=== PATIENT | male | born 1955 | race Caucasian/White ===

== ENCOUNTER 2024-07-10 18:01 | Emergency (ER) | payer MEDICARE, SELFPAY ==
--- NOTE | ~2024-07-10 | XR_ITS ---
XR shoulder RT min 2V Ordering provider: Tracie Murcia APRN History: . post pain; decreased ROM . Comparison: None. FINDINGS: BONES: No acute fracture or dislocation. JOINT SPACES: The acromioclavicular joint is normal. The glenohumeral joint is normal. SOFT TISSUES: Normal. IMPRESSION: No acute osseous abnormality right shoulder. Reviewed, dictated and finalized at location A.
[2024-07-10 18:08] VITALS: PULSE 66; RESP 18; TEMP 36.6; O2SAT 98
--- NOTE | 2024-07-10 18:38 | ED.GENADULT ---
HPI - General Adult General Chief complaint: Extremity Injury, Upper Stated complaint: Pain on right side/lump on lower belly Time Seen by Provider: 07/10/24 18:38 Source: patient, RN notes reviewed and old records reviewed Mode of arrival: ambulatory Limitations: no limitations History of Present Illness HPI narrative: 69-year-old male to [facility] for complaint of right shoulder pain for 1 week that has become increasingly worse over the past 4 days. Patient endorses the pain is worse with active range of motion. Patient has not attempted to treat at home. Patient also complaining of left lower abdominal bulging that has been present for approximately 2 months. Patient denies pain, injury, urinary changes, bowel changes, abdominal surgical history, pertinent medical history. Patient states that he does not have a primary care provider and cannot recall the last time he saw one. Patient resting comfortably in exam room in no acute distress. Respirations even and nonlabored. Related Data Allergies Allergy/AdvReac Type Severity Reaction Status Date / Time ANTIDEPRESSANT MEDICATION Allergy Unknown Hallucinati Uncoded 07/10/24 18:26 ng Review of Systems Review of Systems: All systems reviewed & are unremarkable except as noted in HPI and below Constitutional: Constitutional: Reports no additional constitutional complaints Eyes: Eyes: Reports no additional eye complaints ENT: Reports system reviewed and no additional complaints, except as documented Cardiovascular: Cardiovascular: Reports no additional cardiovascular complaints, Denies chest pain and Denies dyspnea Respiratory: Respiratory: Reports no additional respiratory complaints, Denies cough and Denies dyspnea Gastrointestinal: Gastrointestinal: Reports as per HPI, Denies abdominal pain, Reports melena and Denies change in bowel habits Comments: patient endorses mass to left lower quadrant, denies pain Musculoskeletal: Musculoskeletal: Reports as per HPI and Reports arthralgias ( right shoulder pain with active range of motion per patient) Neurologic: Reports system reviewed and no additional complaints, except as documented Psychiatric: Psychiatric: Reports no additional psychiatric complaints PMFSH Comments At the time of my signature, I reviewed and agree with the nursing past medical, surgical, social, and family history. There is no relevant family history pertinent to the patient complaint. Exam Const: General: cooperative, comfortable, no acute distress, alert and well nourished Nutritional Appearance: well nourished Orientation/consciousness: patient oriented x3 Limitations: no limitations HENMT: Head: normal to inspection Ears: external ears normal Face/Nose/Sinus: Normal external nose present, Normal nares present, normal facial exam, No erythema and No edema Face and sinus: normal facial exam, no erythema and no edema Mouth: Yes Normal oral and palatal mucosa present Eyes: General: appearance normal, both eyes and all related structures Neck: Neck: normal visual inspection, full ROM and no meningeal signs Lymphatic: no lymphadenopathy noted and no lymphedema noted Chest: Chest palpation & inspection: normal inspection of the chest Resp: Effort & Inspection: normal respiratory effort and able to speak in complete sentences Auscultation: clear to auscultation bilaterally Cardio: Jugular venous distension: no JVD Rate: regular rate Rhythm: regular rhythm GI: Inspection: no abdominal wall ecchymosis, non-distended, no visible herniation, no visible pulsation and No visible peristalsis GI Palp: No abdominal tenderness, No Abdominal aortic bruit present, Yes Soft to palpation, Yes Palpable mass present (LLQ), No Pulsatile mass present, No Ascites present and No Rebound tenderness present Back/Spine/Pelvis: Cervical Spine: cervical ROM normal Skin: General skin exam: normal color, no rashes or lesions noted and turgor normal Neuro:
== END 2024-07-10 19:35 | disposition home or self-care (01) ==
PROVIDERS: Emergency Provider Nurse Practitioner Family
DX: M25.511 Pain in right shoulder (principal); R19.00 Intra-abdominal and pelvic swelling, mass and lump, unspecified site
CPT/HCPCS: 73030; 99213; G0463

== ENCOUNTER 2025-01-17 19:09 | Emergency (ER) | payer MEDICARE, SELFPAY ==
--- OUTSIDE RECORDS SUMMARY | 2025-01-17 19:12 | XMS_ITS | Clinical Summary ---
Author Organization [facility] Address [address] [place] [address] Phone Care Team Providers Care Casework Manager Name Role Phone Provider, None Primary Care Provider Unavailabl e Allergies Active Allergy Reactions Criticality Noted Date Comments Ciprofloxacin Hallucinations 07/11/2024 Medications DIPHENHYDRAMINE HCL PO Take 25 mg by mouth daily. Active methylPREDNISol one (MEDROL DOSPACK) 4 MG Tablet Therapy Pack See product package insert for dosing schedule 21 Tablet 07/11/2024 Active traMADol (ULTRAM) 50 MG TabletIndicatio ns:Right shoulder pain Take 1-2 Tablets by mouth every 6 hours as needed for Moderate or more severe pain. 20 Tablet 07/11/2024 Active Social History Tobacco Use Types Packs/Day Years Used Date Smoking Tobacco: Every Day Cigarettes Tobacco Cessation:Ready to Q uit: Not Asked; Counseling Given: Not Answered Alcohol Use Standard Drinks/Week Comments Yes 3 (1 standard drink = 0.6 oz pur e alcohol) Sex and Gender Information Value Date Recorded Sex Assigned at Not on file Legal Sex Male 1:21 PM CDT Gender Identity Not on file Sexual Orientation Not on file Last Filed Vital Signs Vital Sign Reading Time Taken Comments Blood Pressure 161/94 07/11/2024 11:00 PM CDT Pulse 68 07/11/2024 11:00 PM CDT Temperature 36.5 C (97.7 F) 07/11/2024 6:54 PM CDT Respiratory Rate 19 07/11/2024 11:00 PM CDT Oxygen Saturation 97% 07/11/2024 11:00 PM CDT Inhaled Oxygen Concentration - - Weight 70.3 kg (155 lb) 07/11/2024 6:54 PM CDT Height 182.9 cm (6') 07/11/2024 6:54 PM CDT Body Mass Index 21.02 07/11/2024 6:54 PM CDT Plan of Treatment Health Maintenance Due Date Last Done Comments Hepatitis C Virus (HCV) Screening 1955 TdaP Immunization 1957 Pneumococcal Immunization (5 0+ years) (1 of 2 - PCV) 1976 Colonoscopy 2002 Colorectal Cancer Screening 2002 Cologuard 2007 Immunochemical Fecal Occult Blood 2007 Zoster Immunization (1 of 2) 2007 PSA Discussion 2012 AAA Screening Ultrasound 2022 Influenza Immunization (#1) 2024 SARS-COV-2 Immunization ( season) 2024 04/15/2021, 03/18/2021 Respiratory Syncytial Virus (RSV) Immunization (Adult) (1 - 1-dose 75+ series) 2032 Hepatitis B Immunization Aged Out No longer eligible based on patient's age to complete this topic Meningococcal Immunization (ACWY) Aged Out No longer eligible b ased on patient's age to complete this topic Rotavirus Immunization Aged Out No lo nger eligible based on patient's age to complete this topic Insurance MEDICARE Care Teams Casework Manager Relationship Specialty Start Date End Date Provider, None [place] PCP - General 07/11/24
--- OUTSIDE RECORDS SUMMARY | 2025-01-17 19:12 | XMS_ITS | Clinical Summary ---
Author Organization [facility] Address [address] [place] [address] Care Team Providers Care Rn Ante Partum Name Role Phone Christian Leonides Steward DO Primary Care Provider [phone] Alberto Locke DO Unavailable Source Comments [facility],non-owned Affiliates and Associated Physician Practices is amultiple site organization consisting of ambulatory clinics and hospital sitesin [place], [place], [place] and [place]. This disclosure is being madepursuant to the Care Everywhere program and may not contain all information available regarding this patient. Last updated 18.[facility] [employer] Allergies Active Allergy Reactions Criticality Noted Date Comments Ciprofloxacin Unknown 02/12/2019 Medications * Be aware that medications may not be up to date on this document. Alwaysverify current medications with the patient. Medication Sig Dispensed Refills Start Date End Date Status albuterol HFA (PROVENTIL;VENTOLIN; PROAIR) 108 (90 Base) MCG/ACT inhaler Inhale 2 puffs by mouth every 6 hours as needed for Shortness of Breath, Wheezing or Cough 1 Inhaler 02/12/2019 Active Social History Tobacco Use Types Packs/Day Years Used Date Smoking Tobacco: Every Day Cigarettes Alcohol Use Standard Drinks/Week Comments Yes 0 (1 standard drink = 0.6 oz pur e alcohol) daily-5 to 6 beers daily Sex and Gender Information Value Date Recorded Sex Assigned at Not on file Gender Identity Not on file Sexual Orientation Not on file Last Filed Vital Signs Vital Sign Reading Time Taken Comments Blood Pressure 130/82 02/12/2019 12:41 PM CDT Pulse 81 02/12/2019 12:41 PM CDT Temperature 36.6 C (97.8 F) 02/12/2019 12:41 PM CDT Respiratory Rate 18 05/13/2012 6:51 PM CDT Oxygen Saturation 95% 02/12/2019 12:41 PM CDT Inhaled Oxygen Concentration - - Weight 65.8 kg (145 lb) 02/12/2019 12:41 PM CDT Height 182.9 cm (6') 02/12/2019 12:41 PM CDT Body Mass Index 19.67 02/12/2019 12:41 PM CDT Plan of Treatment Health Maintenance Due Date Last Done Comments COLOGUARD (AGES 45-75) - COL ON CA SCREENING 1957 COLON MONITORING 1957 COLONOSCOPY - COLON CA SCREENING 1957 CT COLONOGRAPHY - COLON CA SCREENING 1957 Colorectal Cancer Screening 1957 FIT - COLON CA SCREENING 1957 FLEX SIG - COLON CA SCREENING 1957 LIPID TESTING 1957 HEPATITIS C SCREENING 05/14/1975 DTAP/TDAP/TD VACCINES (1 - Tdap) 1976 PNEUMOCOCCAL VACCINE 50+ (1 of 2 - PCV) 1976 ZOSTER VACCINE (1 of 2) 2007 AAA SCREENING 2022 COVID-19 VACCINE ( - 2023-2 5 season) 2024 INFLUENZA VACCINE (#1) 2024 DEPRESSION SCREENING 10/23/2024 Respiratory Syncytial Virus (RSV) Vaccine Pt: or over 60 yrs (1 - 1-dose 75+ series) 2032 HEPATITIS B VACCINE Aged Out No longe r eligible based on patient's age to complete this topic HIB VACCINE Aged Out No longer eligi ble based on patient's age to complete this topic HPV VACCINE Aged Out No longer eligi ble based on patient's age to complete this topic MENINGOCOCCAL (Group B) VACC INE SHARED DECISION-MAKING Aged Out No longer eligibl e based on patient's age to complete this topic MENINGOCOCCAL GROUPS A/C/Y/W VACCINE Aged Out No longer eligible b ased on patient's age to complete this topic Care Teams Rn Ante Partum Relationship Specialty Start Date End Date Leonides Gonzales DO [address] [place] [id number] PCP - General 05/13/12 [place] [address] [place] [address] PCP - Attributed-[facility] 11/23/24
[2025-01-17 19:14] VITALS: BP 220/109; PULSE 71; RESP 16; TEMP 36.5; O2SAT 96
[2025-01-17 19:21] VITALS: BP 195/93
--- NOTE | 2025-01-17 19:24 | ED_ITS ---
HPI - General Adult General Chief complaint: Upper Respiratory Infection Stated complaint: thinks plurasy/sinus infection Time Seen by Provider: 01/17/25 19:25 Source: patient Mode of arrival: ambulatory Limitations: no limitations History of Present Illness HPI narrative: 69-year-old male presented for complaint of right lower rib pain for 2 days, nasal congestion and sinus pressure for about 2 weeks. Says the rib pain feels like previous pleurisy; increases with deep breath and coughing Taking an unknown antihistamine for symptoms. Denies chest pain, heart racing, shortness of breath, wheezing nausea vomiting diarrhea, fevers or lethargy. Patient smokes over 1 PPD, alcohol daily. No PCP Related Data Allergies Allergy/AdvReac Type Severity Reaction Status Date / Time ANTIDEPRESSANT MEDICATION Allergy Unknown Hallucinati Uncoded 01/17/25 19:26 ng Review of Systems Review of Systems: ROS per HPI All systems reviewed & are unremarkable except as noted in HPI and below PMFSH Comments At time of signature, I have reviewed and agree with nursing past medical, surgical, social and family history unless otherwise noted. Please see nursing chart for further information. There is no relevant family history pertinent to the presenting complaint Exam Narrative: GENERAL: Well-appearing, in no acute distress. EYES: EOMI. No redness or drainage. Conjunctivae normal. ENT: Mucous membranes pink and moist. No rhinorrhea. NECK: Normal AROM. Supple. CHEST: No respiratory distress. Lungs clear diminished; tender right anterior/lateral ribs with palpation, no bruising or rash. HEART: Regular rate and rhythm. No murmur appreciated. EXTREMITIES: Normal range of motion. No edema. SKIN: Warm, dry, no rash. Capillary refill normal. Normal skin turgor. NEURO: Alert and oriented x3. Gait steady. PSYCH: Normal affect. Course Course Emergency Course: Patient is aware of diagnosis, understands and agrees to treatment plan. Anticipatory guidance given. Patient agrees to follow-up as directed and is aware of reasons to seek care at the emergency department. Portions of this record may have been created with voice recognition software Level of Care: Express Care Visit Vital Signs Vital signs: Vital Signs Temperature 97.7 F 01/17/25 19:14 Pulse Rate 71 01/17/25 19:14 Respiratory Rate 16 01/17/25 19:14 Blood Pressure 220/109 H 01/17/25 19:14 Pulse Oximetry 96 01/17/25 19:14 Oxygen Delivery Room Air 01/17/25 19:14 Temperature 97.7 F 01/17/25 19:14 Pulse Rate 71 01/17/25 19:14 Respiratory Rate 16 01/17/25 19:14 Blood Pressure 195/93 H 01/17/25 19:21 Pulse Oximetry 96 01/17/25 19:14 Oxygen Delivery Room Air 01/17/25 19:14 Medical Decision Making MDM Narrative Medical decision making narrative: Discussed physical exam findings. Advised supportive measures and signs/symptoms to go to the ER. Pt is appropriate for outpt treatment and f/u. Differential Diagnosis Differential Diagnosis: Angioedema, perforation, asthma, pneumonia, PE, tension pneumothorax, cardiac tamponade ME, pericarditis, pleural effusion, CHF, bronchitis, cardiac arrhythmia Vital Signs Vital Signs: Vital Signs Temperature 97.7 F 01/17/25 19:14 Pulse Rate 71 01/17/25 19:14 Respiratory Rate 16 01/17/25 19:14 Blood Pressure 220/109 H 01/17/25 19:14 Pulse Oximetry 96 01/17/25 19:14 Oxygen Delivery Room Air 01/17/25 19:14 Temperature 97.7 F 01/17/25 19:14 Pulse Rate 71 01/17/25 19:14 Respiratory Rate 16 01/17/25 19:14 Blood Pressure 195/93 H 01/17/25 19:21 Pulse Oximetry 96 01/17/25 19:14 Oxygen Delivery Room Air 01/17/25 19:14 Discharge Plan Discharge Clinical Impression: Bronchitis, Elevated blood pressure reading Patient Disposition: Home, Self-Care Condition: Stable Instructions: Antibiotic Form, Acute Bronchitis (ED), Hypertension (ED) Additional Instructions: Your blood pressure reading was elevated (above 120/80) You were advised to transfer to the ER and you decline at this time. You were made aware of the risk of refusal including worsening of your condition and . If you develop worsening Blood Pressure symptoms, (headache, vision changes, dizziness, vomiting, chest pain, etc) go to the ER. Call 911. Take medication as directed Recommendations: Flonase spray and Zyrtec (or Claritin/Andria) for nasal congestion over the counter Cough syrup may cause drowsiness; avoid driving or take it at night time. Coricidin HBP if you have high blood pressure. Avoid decongestants. Tylenol 1000mg every 8 hours as needed for pain Symptomatic treatment includes: rest, Push fluids, smoking cessation, and increase humidity of the air at home. establish with a primary care provider in follow-up within 1 week Go to the ER for worsening symptoms or concerns Patient Language: Polish Prescriptions: New benzonatate 200 mg capsule 200 mg PO TID PRN (Reason: cough) Qty: 20 0RF methylprednisolone [Medrol (James)] 4 mg tablets,dose pack See Rx Instructions .ROUTE .COMPLEX Qty: 21 0RF Rx Instructions: orally per package directions amoxicillin-pot clavulanate 875-125 mg tablet 1 tablet PO Q12H 7 Days Qty: 14 0RF No Action baclofen 10 mg tablet 10 mg PO TID Qty: 12 0RF Rx Instructions: 2-3 times per day PRN for pain Follow-up/Referrals: PHYSICIAN,PUBLIC INFORMATION DIRECTOR [Primary Care Provider] -
== END 2025-01-17 19:58 | disposition left against medical advice (07) ==
PROVIDERS: Emergency Provider Nurse Practitioner Family
DX: J40 Bronchitis, not specified as acute or chronic (principal); R03.0 Elevated blood-pressure reading, without diagnosis of hypertension
CPT/HCPCS: 99213; G0463

== ENCOUNTER 2025-01-31 17:56 | Emergency (ER) | payer MEDICARE, SELFPAY ==
--- OUTSIDE RECORDS SUMMARY | 2025-01-31 17:59 | XMS_ITS | Clinical Summary ---
Author Organization [facility] Address [address] [place] [address] Care Team Providers Care Critical Power Install Technician Name Role Phone Christian Leonides Steward DO Primary Care Provider [phone] Alberto Locke DO Unavailable Source Comments [facility],non-owned Affiliates and Associated Physician Practices is amultiple site organization consisting of ambulatory clinics and hospital sitesin [place], [place] and [place]. This disclosure is being madepursuant to the Care Everywhere program and may not contain all information available regarding this patient. Last updated 18.[facility] [email or web address] Allergies Active Allergy Reactions Criticality Noted Date [...] VACCINE ( - 2023-2 5 season) 2024 DEPRESSION SCREENING 10/23/2024 INFLUENZA VACCINE (Season Ended) 2025 Respiratory Syncytial Virus (RSV) Vaccine Pt: or [...] age to complete this topic Care Teams Critical Power Install Technician Relationship Specialty Start Date End Date Leonides Gonzales DO [address] [place] [id number] PCP - General 05/13/12 [place] [address] [place] [id number] PCP - Attributed-[facility] 11/23/24
--- OUTSIDE RECORDS SUMMARY | 2025-01-31 17:59 | XMS_ITS | Clinical Summary ---
Author Organization [facility] Address [address] [place] [address] Phone Care Team Providers Care Clockmaker Name Role Phone Provider, None Primary Care [...] more severe pain. 20 Tablet 07/11/2024 Active amLODIPine (NORVASC) 5 MG TabletIndicatio ns:Hypertension Take 1 Tablet by mouth daily. Indications: High Blood Pressure 30 Tablet 01/23/2025 Active Encounters Date Type Department Care Team Description [facility] [place] [id number] Rich Barraza RN ED Follow-up (pt called to er requesting information) 01/23/2025 7:21 PM CDT - 01/23/2025 11:27 PM CDT [facility] [place] [id number] Anton Garcia MD Hypertension Discharge Disposition: Discharged to home or Selfcare 01/23/2025 Travel from Last 3 Months Social History Tobacco Use Types Packs/Day Years [...] Sign Reading Time Taken Comments Blood Pressure 191/75 01/23/2025 11:15 PM CDT Pulse 57 01/23/2025 11:15 PM CDT Temperature 36.6 C (97.9 F) 01/23/2025 7:19 PM CDT Respiratory Rate 17 01/23/2025 11:15 PM CDT Oxygen Saturation 97% 01/23/2025 11:15 PM CDT Inhaled Oxygen Concentration - - Weight 70.3 kg (155 lb) 01/23/2025 7:19 PM CDT Height 182.9 cm (6') 01/23/2025 7:19 PM CDT Body Mass Index 21.02 01/23/2025 7:19 PM CDT Plan of Treatment Health Maintenance Due Date Last Done Comments Hepatitis C Virus (HCV) Screening 1955 TdaP Immunization 1957 Pneumococcal Immunization (5 0+ years) (1 of 2 - PCV) 1976 Colonoscopy 2002 Colorectal Cancer Screening 2002 Cologuard 2007 Immunochemical Fecal Occult Blood 2007 Zoster Immunization (1 of 2) 2007 PSA Discussion 2012 AAA Screening Ultrasound 2022 SARS-COV-2 Immunization (3 - season) 2024 04/15/2021, 03/18/2021 Influenza Immunization (Seas on Ended) 2025 Respiratory Syncytial Virus (RSV) Immunization (Adult) (1 - 1-dose 75+ series) 2032 Hepatitis B Immunization Aged Out No longer eligible based on patient's age to complete this topic Meningococcal Immunization (ACWY) Aged Out No longer eligible b ased on patient's age to complete this topic Rotavirus Immunization Aged Out No lo nger eligible based on patient's age to complete this topic Procedures Procedure Name Priority Date/Time Associated Diagnosis Comments TROPONIN I, HIGH SENSITIVITY (HSTRP) STAT 01/23/2025 9:25 PM CDT AEROSOL NEBULIZER-INITIAL STAT 01/23/2025 8:32 PM CDT XR CHEST 2 VIEWS STAT 01/23/2025 8:26 PM CDT EKG 12 LEAD STAT 01/23/2025 8:09 PM CDT CBC WITH AUTO DIFFERENTIAL STAT 01/23/2025 8:07 PM CDT TROPONIN I, HIGH SENSITIVITY (HSTRP) STAT 01/23/2025 8:07 PM CDT MAGNESIUM (MG) STAT 01/23/2025 8:07 PM CDT D-DIMER STAT 01/23/2025 8:07 PM CDT COMPLETE BLOOD COUNT (CBC) WITH DIFF STAT 01/23/2025 8:07 PM CDT CMP (COMPREHENSIVE METABOLIC PANEL) STAT 01/23/2025 8:07 PM CDT B-TYPE NATRIURETIC PEPTIDE (BNP) STAT 01/23/2025 8:07 PM CDT EKG SCAN 01/23/2025 12:00 AM CDT from Last 3 Months Results * TROPONIN I, HIGH SENSITIVITY (HSTRP) (01/23/2025 9:25 PM CDT) Only the most recent of2 resultswithin the time period is included. TROPONIN I, HIGH SENSITIVITY- [place] 4 <=35 ng/L 01/23/2025 9:57 PM CDT [facility] Comment: High-sensitivity troponin I results are reported in ng/L making the result appear to be 1,000 times higher than the contemporary troponin I value which is reported in ng/ml. Results from [place]. Blood Venipuncture / Unknown 01/23/2025 9:25 PM CDT 01/23/2025 9:35 PM CDT Anton Garcia MD CHEMISTRY ORDERABLES Allyson l Result [facility] [place] [address] * XR CHEST 2 VIEWS (01/23/2025 8:26 PM CDT) Anatomical Region Laterality Modality Chest N/A Digital Radiogra phy 01/23/2025 8:50 PM CDT Impressions 01/23/2025 8:52 PM CDT IMPRESSION: No acute cardiopulmonary abnormality. Narrative 01/23/2025 8:52 PM CDT EXAM DESCRIPTION: XR CHEST 2 VIEWS REASON FOR STUDY: Chest pain and elevated blood pressure today. Chest discomfort started 3 days ago. TECHNIQUE: 2 radiographic view(s) of the chest. COMPARISON: 07/11/2024 FINDINGS: LUNGS: No focal opacity, pleural effusion, or pneumothorax. HEART/MEDIASTINUM: Cardiac silhouette normal in size. Mediastinal and hilar contours appear normal. LINES/TUBES: None. BONES: No acute osseous abnormality. THIS IS AN ELECTRONICALLY VERIFIED FINAL REPORT 01/23/2025 8:50 PM - Electronically signed by Abimael Joyce M.D. KT: LISA Report ID: [id number] Reading Location: [id number] Procedure Note Abimael Joyce MD - 01/23/2025 EXAM DESCRIPTION: XR CHEST 2 VIEWS REASON FOR STUDY: Chest pain and elevated blood pressure today. Chest discomfort started 3 days ago. TECHNIQUE: 2 radiographic view(s) of the chest. COMPARISON: 07/11/2024 FINDINGS: LUNGS: No focal opacity, pleural effusion, or pneumothorax. HEART/MEDIASTINUM: Cardiac silhouette normal in size. Mediastinal and hilar contours appear normal. LINES/TUBES: None. BONES: No acute osseous abnormality. THIS IS AN ELECTRONICALLY VERIFIED FINAL REPORT 01/23/2025 8:50 PM - Electronically signed by Abimael Joyce M.D. KT: KT Report ID: [id number] Reading Location: [place] [address] IMPRESSION: No acute cardiopulmonary abnormality. Anton Garcia MD IMG DIAGNOSTIC ORDERABLES Final Result * EKG 12 LEAD (01/23/2025 8:09 PM CDT) Ventricular Rate 56 BPM EXTERNAL EKG Atrial Rate 56 BPM EXTERNAL EKG P-R Interval 132 ms EXTERNAL EKG QRS Duration 90 ms EXTERNAL EKG Q-T Duration 424 ms EXTERNAL EKG QTC CALCULATION 409 ms EXTERNAL EKG P [place] 73 degrees EXTERNAL EKG R [place] 31 degrees EXTERNAL EKG T [place] 53 degrees EXTERNAL EKG 01/23/2025 8:09 PM CDT Impressions EXTERNAL EKG - 01/24/2025 3:13 PM CDT Sinus bradycardia Otherwise normal ECG When compared with ECG of 11-JUL-2024 19:21, premature atrial complexes are no longer present Confirmed by Clyde Yousif ([id number]) on 01/24/2025 3:13:28 PM Narrative Procedure Note Clyde Yousif MD - 01/24/2025 IMPRESSION: Sinus bradycardia Otherwise normal ECG When compared with ECG of 11-JUL-2024 19:21, premature atrial complexes are no longer present Confirmed by Clyde Yousif ([id number]) on 01/24/2025 3:13:28 PM Anton Garcia MD IMG ECG ORDERABLES Final Result EXTERNAL EKG * (ABNORMAL) CBC with Auto Differential (01/23/2025 8:07 PM CDT) WBC 5.60 4.00 - 12.00 10(3)/mcL 01/23/2025 8:40 PM CDT [facility] RBC 4.37(L) 4.40 - 5.80 10(6)/mcL 01/23/2025 8:40 PM CDT [facility] HEMOGLOBIN (HGB) 15.6 13.0 - 16.5 g/dL 01/23/2025 8:40 PM CDT [facility] HEMATOCRIT (HCT) 44.2 38.0 - 50.0 % 01/23/2025 8:40 PM CDT [facility] MCV 101.1(H) 82.0 - 96.0 fL 01/23/2025 8:40 PM CDT [facility] MCH 35.7(H) 26.0 - 32.0 pg 01/23/2025 8:40 PM CDT [facility] MCHC 35.3 31.0 - 36.0 g/dL 01/23/2025 8:40 PM CDT [facility] PLATELET COUNT 189 140 - 440 10(3)/mcL 01/23/2025 8:40 PM CDT [facility] RDW 12.2 11.8 - 15.5 % 01/23/2025 8:40 PM CDT [facility] MPV 10.4 8.0 - 12.6 fL 01/23/2025 8:40 PM CDT [facility] NEUTROPHILS 67.2 40.0 - 68.0 % 01/23/2025 8:40 PM CDT [facility] LYMPHOCYTES 20.9 19.0 - 49.0 % 01/23/2025 8:40 PM CDT [facility] MONOCYTES 10.0 3.0 - 13.0 % 01/23/2025 8:40 PM CDT [facility] EOSINOPHILS 1.4 0.0 - 8.0 % 01/23/2025 8:40 PM CDT [facility] BASOPHILS 0.5 0.0 - 1.0 % 01/23/2025 8:40 PM CDT [facility] ABSOLUTE NEUTROPHILS 3.76 1.40 - 5.30 10(3)/mcL 01/23/2025 8:40 PM CDT [facility] ABSOLUTE LYMPHOCYTES 1.17 0.90 - 3.30 10(3)/mcL 01/23/2025 8:40 PM CDT [facility] ABSOLUTE MONOCYTES 0.56 0.10 - 0.90 10(3)/mcL 01/23/2025 8:40 PM CDT [facility] ABSOLUTE EOSINOPHIL 0.08 0.00 - 0.50 10(3)/[facility] 01/23/2025 8:40 PM CDT [facility] ABSOLUTE BASOPHILS 0.03 0.00 - 0.10 10(3)/[facility] 01/23/2025 8:40 PM CDT [facility] NRBC PER 100 WBC 0 01/24/20 8:40 PM CDT [facility] Blood Venipuncture / Unknown 01/23/2025 8:07 PM CDT 01/23/2025 8:16 PM CDT us Anton Garcia MD HEMATOLOGY ORDERABLES Fin al Result Performing Organization Address City/[facility]/ZIP Co de Phone Number [facility] [place] [address] * MAGNESIUM (MG) (01/23/2025 8:07 PM CDT) [facility] MAGNESIUM 2.1 1.6 - 2.6 mg/dL 01/23/2025 8:35 PM CDT [facility] Blood Venipuncture / Unknown 01/23/2025 8:07 PM CDT 01/23/2025 8:12 PM CDT Anton Garcia MD CHEMISTRY ORDERABLES Allyson l Result [facility] [place] [address] * D-Dimer (01/23/2025 8:07 PM CDT) Pathologist [facility] D DIMER <=0.27 <0.50 mcg/mL FEU 01/23/2025 8:29 PM CDT [facility] Blood Venipuncture / Unknown 01/23/2025 8:07 PM CDT 01/23/2025 8:12 PM CDT Narrative [facility] - 01/23/2025 8:29 PM CDT The FDA has approved this method to exclude the diagnosis of DVT and/or PE at the cutoff value of <0.50 mcg/mL FEU. us Anton Garcia MD HEMATOLOGY ORDERABLES Fin al Result [facility] [place] [address] * (ABNORMAL) CMP (Comprehensive Metabolic Panel) (01/23/2025 8:07 PM CDT) [facility] SODIUM 141 136 - 145 mmol/L 01/23/2025 8:35 PM CDT [facility] POTASSIUM 4.1 3.5 - 5.1 mmol/L 01/23/2025 8:35 PM CDT [facility] CHLORIDE 108(H) 98 - 107 mmol/L 01/23/2025 8:35 PM CDT [facility] CO2, VENOUS 25 22 - 30 mmol/L 01/23/2025 8:35 PM CDT [facility] ANION GAP 12.1 <18.0 mmol/L 01/23/2025 8:35 PM CDT [facility] GLUCOSE 101(H) 70 - 99 mg/dL 01/23/2025 8:35 PM CDT [facility] BUN 14 8 - 26 mg/dL 01/23/2025 8:35 PM CDT [facility] CREATININE, BLOOD 0.65(L) 0.70 - 1.30 mg/dL 01/23/2025 8:35 PM CDT [facility] BUN/CREATININE RATIO 22(H) 12 - 20 ratio 01/23/2025 8:35 PM CDT [facility] TOTAL PROTEIN 6.6 6.0 - 8.0 g/dL 01/23/2025 8:35 PM CDT [facility] ALBUMIN 3.8 3.5 - 5.0 g/dL 01/23/2025 8:35 PM CDT [facility] A/G RATIO 1.4 1.0 - 2.2 01/23/2025 8:35 PM CDT [facility] CALCIUM 8.8 8.7 - 10.5 mg/dL 01/23/2025 8:35 PM CDT [facility] T BILI 0.5 0.2 - 1.2 mg/dL 01/23/2025 8:35 PM CDT [facility] SGOT (AST) 32 <43 U/L 01/23/2025 8:35 PM CDT [facility] SGPT (ALT) 47 <56 U/L 01/23/2025 8:35 PM CDT [facility] ALKALINE PHOSPHATASE 63 40 - 150 U/L 01/23/2025 8:35 PM CDT [facility] GFR, ESTIMATED >60 >=60 01/23/2025 8:35 PM CDT [facility] Comment: Creatinine Clearance is the preferred criteria for selecting drug dose adjustments in renally impaired patients. The GFR is provided as additional pertinent clinical information. GFR is reported in mL/min/1.73 sq m. Calculation based on the Chronic Kidney Disease Epidemiology Collaboration (CKD- EPI) equation refit without adjustment for race. GFR, EST. >60 >=60 025 8:35 PM CDT [facility] GFR, EST. NONAFRICAN >60 >=60 01/23/2025 8:35 PM CDT [facility] Blood Venipuncture / Unknown 01/23/2025 8:07 PM CDT 01/23/2025 8:12 PM CDT Anton Garcia MD CHEMISTRY ORDERABLES Allyson l Result Performing Organization Address City/[facility]/ZIP Co de Phone Number [facility] [place] [address] * (ABNORMAL) B-Type Natriuretic Peptide (BNP) (01/23/2025 8:07 PM CDT) B TYPE NATRIURETIC PEPTIDE 104(H) <100 pg/mL 01/23/2025 8:42 PM CDT [facility] Blood Venipuncture / Unknown 01/23/2025 8:07 PM CDT 01/23/2025 8:16 PM CDT Anton Garcia MD CHEMISTRY ORDERABLES Allyson l Result Performing Organization Address [facility] Co de Phone Number [facility] [place] [address] * EKG SCAN (01/23/2025 12:00 AM CDT) 01/23/2025 Provider Scan IMG ECG ORDERABLES Final Result Performing Organization Address City/[facility] Co de Phone Number RESULTING AGENCY from Last 3 Months Insurance MEDICARE C [facility] Care Teams Clockmaker Relationship Specialty Start Date End Date Provider, None [place] PCP - General 9/19/24
--- OUTSIDE RECORDS SUMMARY | 2025-01-31 17:59 | XMS_ITS | Encounter Summary ---
Author Organization [facility] Address [address] [place] [address] Phone Care Team Providers Care Manager Entry Name Role Phone Provider, None Primary Care Provider Unavailabl e Reason for Visit * Reason Onset Date Comments ED Follow-up 01/31/2025 pt called to er requesting information Encounter Details Date Type Department Care Team (Late st Contact Info) Description 01/31/2025 Telephone [facility] Emergency [address] [place] [phone] Rich Barraza, [place] ED Follow-up (pt called to er requesting information) Social History Tobacco Use Types Packs/Day Years Used Date Smoking Tobacco: Every Day Cigarettes Alcohol Use Standard Drinks/Week Comments Yes 3 (1 standard drink = 0.6 oz pur e alcohol) Sex and Gender Information Value Date Recorded Sex Assigned at Not on file Legal Sex Male 1:21 PM CDT Gender Identity Not on file Sexual Orientation Not on file documented as of this encounter Miscellaneous Notes * Telephone Encounter - Rich Barraza RN - 01/31/2025 4:11 PM CDT pt called requesting information about meds to prevent constipation. he then said he has dark brownto redness moving from his hand up to his wrist. he is concerned about possible infection. advised pt to come to er for evaluation. he stated he would return tonight. documented in this encounter Plan of Treatment Not on file documented as of this encounter Visit Diagnoses Not on filedocumented in this encounter Care Teams Manager Entry Relationship Specialty Start Date End Date Provider, None [place] PCP - General 07/11/24 documented as of this encounter
--- NOTE | 2025-01-31 18:11 | ED.GENADULT ---
HPI - General Adult General Chief complaint: Unspecified Stated complaint: Right Hand/Blood Pressure Problem Time Seen by Provider: 01/31/25 18:11 Source: patient, RN notes reviewed and old records reviewed Mode of arrival: ambulatory Limitations: no limitations History of Present Illness HPI narrative: 69-year-old male presents to the [facility] with multiple concerns. Patient was seen on January 17 at the urgent care. States that he did go to the emergency room on the 24 of January. Was started on blood pressure medication. Patient reports also at that time they did start an IV which he is concerned that that there is infection due to the discoloration. Patient states that his sinus congestion has not improved even though he took all of the medications that were prescribed. Patient states he has not made an appointment for follow-up before any of his issues he has been seen for in the past. Related Data Allergies Allergy/AdvReac Type Severity Reaction Status Date / Time ANTIDEPRESSANT MEDICATION Allergy Unknown Hallucinati Uncoded 01/17/25 19:26 ng Review of Systems Review of Systems: All systems reviewed & are unremarkable except as noted in HPI and below Constitutional: Constitutional: Reports no additional constitutional complaints ENT: Reports as per HPI Cardiovascular: Cardiovascular: Reports no additional cardiovascular complaints, Denies chest pain and Denies dyspnea Respiratory: Respiratory: Reports as per HPI, Denies chest congestion, Denies cough and Denies dyspnea Musculoskeletal: Musculoskeletal: Reports no additional musculoskeletal complaints Integumentary/Breasts: Skin/Breast: Reports as per HPI PMFSH Comments At the time of my signature, I reviewed and agree with the nursing past medical, surgical, social, and family history. There is no relevant family history pertinent to the patient complaint. Exam Const: General: cooperative, no acute distress, well developed, alert, ill appearing chronically, tired appearing and well nourished Nutritional Appearance: well nourished Orientation/consciousness: patient oriented x3 Limitations: no limitations HENMT: Head: normal to inspection Ears: hearing grossly normal bilaterally, external ears normal, TM's normal bilaterally, EAC's normal, mastoids normal and no periauricular adenopathy Mouth: Yes Normal oral and palatal mucosa present, Yes lip normal, Yes tongue normal and Yes moist mucous membranes Throat: posterior oropharynx normal, uvula midline and no uvular edema Eyes: General: appearance normal, both eyes and all related structures Alignment and Position: alignment normal Neck: Neck: normal visual inspection, full ROM, no lymphadenopathy and no meningeal signs Chest: Chest palpation & inspection: normal inspection of the chest Resp: Effort & Inspection: normal respiratory effort and able to speak in complete sentences Auscultation: no crackles, no rales, no rhonchi and wheezes scattered wheezes Cardio: Rate: regular rate Skin: General skin exam: normal color and no rashes or lesions noted Other: Bruising noted dorsal right hand, IV site. No swelling, no increased warmth, no erythema Neuro: General: patient oriented x3, gait normal, moves all extremities and no meningeal signs Cognition (Neuro): normal cognition Speech: normal speech Gait exam (Neuro): Normal gait present Extrem: General: normal to inspection, full ROM, capillary refill normal and normal gait Psych: Appearance: grossly normal and well kempt Mental Status: mental status grossly normal Speech and movement: Normal speech and movement present and Clear speech present Affect: normal affect Attitude: cooperative Course Course Level of Care: Express Care Visit Vital Signs Vital signs: Vital Signs Temperature 97.7 F 01/31/25 18:12 Pulse Rate 59 L 01/31/25 18:12 Respiratory Rate 20 01/31/25 18:12 Blood Pressure 175/95 H 01/31/25 18:12 Pulse Oximetry 98 01/31/25 18:12 Oxygen Delivery Room Air 01/31/25 18:12 Temperature 97.7 F 01/31/25 18:12 Pulse Rate 59 L 01/31/25 18:12 Respiratory Rate 20 01/31/25 18:12 Blood Pressure 175/95 H 01/31/25 18:12 Pulse Oximetry 98 01/31/25 18:12 Oxygen Delivery Room Air 01/31/25 18:12 Reviewed Medical Decision Making MDM Narrative Medical decision making narrative: Patient is sitting comfortably in exam room. Patient is nontoxic, vitals are stable except for pressure elevated. Recently started on blood pressure medication in the emergency room at [facility]. Has not made a follow-up appointment. Bruising noted most likely from IV site to the dorsal right hand. No signs of cellulitic changes. Patient with continued URI symptoms did not improve with antibiotics, steroids. Patient is currently a smoker. Has mild wheezing scattered. Concern for bronchitis versus COPD Patient appropriate for outpatient treatment with close follow-up with discussed signs and symptoms or proceed to the emergency room which he verbalized understanding Discharge instructions reviewed with patient, as well as provided in writing per nursing staff. The instructions also include specific and strict return/GO TO THE ER as well as f/u information. All questions have been answered, and the patient deny any further questions with discharge and discharge plan. Some parts of this dictation were generated by voice recognition software and may contain typographical and/or grammatical inaccuracies. Medical Records Medical records reviewed: Yes I reviewed the external patient's medical records. Vital Signs Vital Signs: Vital Signs Temperature 97.7 F 01/31/25 18:12 Pulse Rate 59 L 01/31/25 18:12 Respiratory Rate 20 01/31/25 18:12 Blood Pressure 175/95 H 01/31/25 18:12 Pulse Oximetry 98 01/31/25 18:12 Oxygen Delivery Room Air 01/31/25 18:12 Temperature 97.7 F 01/31/25 18:12 Pulse Rate 59 L 01/31/25 18:12 Respiratory Rate 20 01/31/25 18:12 Blood Pressure 175/95 H 01/31/25 18:12 Pulse Oximetry 98 01/31/25 18:12 Oxygen Delivery Room Air 01/31/25 18:12 Reviewed Lab Data Lab results reviewed: Yes I reviewed the patient's lab results. Labs: Reviewed Critical Care Time Critical Care Time Critical Care Time: No Discharge Plan Discharge Clinical Impression: Wheezing, Ecchymosis Patient Disposition: Home Condition: Stable Instructions: Antibiotic Form, How to Stop Smoking (ED), Contusion in Children (DC), Chronic Bronchitis (ED) Additional Instructions: Today your blood pressure was 175/95. Please establish a primary care provider. As you said you may want a look at her paperwork from [facility] and make phone calls. Continue taking your blood pressure medication as already prescribed Today wheezing was noted on your lungs. An inhaler has been prescribed It is recommended that you do stop smoking For sinus congestion you can try using Flonase and taking allergy medication daily. Be sure to check cold medicine and make sure it is safe for people with high blood pressure. Medications such as Coricidin does make medications that are safe with blood pressure issues If you develop new or worsening symptoms please go directly to the emergency room Patient Language: Icelandic Prescriptions: New albuterol sulfate [Ventolin HFA] 90 mcg/actuation HFA aerosol inhaler 2 puff inhalation QID Qty: 6.7 0RF No Action baclofen 10 mg tablet 10 mg PO TID Qty: 12 0RF Rx Instructions: 2-3 times per day PRN for pain benzonatate 200 mg capsule 200 mg PO TID PRN (Reason: cough) Qty: 20 0RF methylprednisolone [Medrol (James)] 4 mg tablets,dose pack See Rx Instructions .ROUTE .COMPLEX Qty: 21 0RF Rx Instructions: orally per package directions amoxicillin-pot clavulanate 875-125 mg tablet 1 tablet PO Q12H 7 Days Qty: 14 0RF Follow-up/Referrals: PHYSICIAN,PATTERN WHEEL MAKER [Primary Care Provider] - Time of Disposition: 18:41
[2025-01-31 18:12] VITALS: BP 175/95; PULSE 59; RESP 20; TEMP 36.5; O2SAT 98
== END 2025-01-31 18:48 | disposition home or self-care (01) ==
PROVIDERS: Emergency Provider Nurse Practitioner
DX: R06.2 Wheezing (principal); S60.221A Contusion of right hand, initial encounter; Y84.8 Other medical procedures as the cause of abnormal reaction of the patient, or of later complication, without mention of misadventure at the time of the procedure; I10 Essential (primary) hypertension
CPT/HCPCS: 99213; G0463